=== PATIENT | female | born 1970 | race African-American/Black ===

== ENCOUNTER 2017-08-08 12:31 | Emergency (ER) | payer BC ==
[~2017-08-08] VITALS: Ht 170.2 cm; Wt 151.6 kg
[~2017-08-08 12:31] MED LIST: HYDROCODON-ACE1 EAC7 PO; NAPROSYN500 MG PO; NAPROXEN500 MG PO; PERCOCET 5/31 TABLET PO; PREDNISONE10 MG PO; ROBITUSSIN AC,T10 ML PO; ZOLOFT50 MG PO
[2017-08-08] MEDS ORDERED: MOTRIN600 MG PO (17:04)
[2017-08-08 17:45] VITALS: BP 132/88
== END 2017-08-08 17:45 | disposition home or self-care (01) ==
LOC: EME 12:31
DX: S46.912A Strain of unspecified muscle, fascia and tendon at shoulder and upper arm level, left arm, initial encounter (principal); X58.XXXA Exposure to other specified factors, initial encounter; I10 Essential (primary) hypertension; F32.9 Major depressive disorder, single episode, unspecified; Z98.84 Bariatric surgery status
CPT/HCPCS: 73030; 99281; 99284